=== PATIENT | female | born 1990 | race Caucasian/White ===

== ENCOUNTER 2022-02-20 08:27 | Outpatient (CLI) | payer OTHER, SELFPAY ==
--- NOTE | 2022-02-20 08:36 | XR_ITS ---
WS: [id number] Exam: XR hip RT 2-3V wo/w pel* [id number] Date/Time of Exam: 02/20/2022 8:38 AM Reason For Exam: right hip/flank pain Findings: No fractures or bone anomalies are noted. No unusual soft tissue masses or calcifications are seen. The bony elements of the hip are in adequate alignment. XR/XR hip RT 2-3V wo/w pel* [id number] IMPRESSION: Negative right hip. Tonnis classification: 0
== END 2022-02-20 08:28 | disposition home or self-care (01) ==
LOC: RAD 08:31
PROVIDERS: PCP Family Medicine; Visit Provider Clinical Nurse Specialist Adult Health
DX: M25.551 Pain in right hip (principal); R10.9 Unspecified abdominal pain
CPT/HCPCS: 73502

== ENCOUNTER 2022-05-20 06:00 | Outpatient (RCR) | payer OTHER, SELFPAY | END 2022-05-25 23:59 | disposition home or self-care (01) | LOC: SPT 06:00 | PROVIDERS: PCP Family Medicine; Visit Provider Family Medicine | DX: M25.551 Pain in right hip (principal) | CPT/HCPCS: 97110; 97162 ==

== ENCOUNTER 2022-05-26 06:00 | Outpatient (RCR) | payer OTHER, SELFPAY | END 2022-06-24 23:59 | disposition home or self-care (01) | LOC: SPT 06:00 | PROVIDERS: PCP Family Medicine; Visit Provider Family Medicine | DX: M25.551 Pain in right hip (principal) | CPT/HCPCS: 97110 ==

== ENCOUNTER 2022-06-25 06:00 | Outpatient (RCR) | payer OTHER, SELFPAY | END 2022-07-09 23:59 | disposition home or self-care (01) | LOC: SPT 06:00 | PROVIDERS: PCP Family Medicine; Visit Provider Family Medicine | DX: M25.551 Pain in right hip (principal) | CPT/HCPCS: 97110 ==

== ENCOUNTER → 2022-11-12 11:44 | Outpatient (BNVA) | payer SELFPAY | PROVIDERS: PCP Family Medicine; Visit Provider Family Medicine | DX: N91.2 Amenorrhea, unspecified (principal) | CPT/HCPCS: 84703 ==